=== PATIENT | female | born 1970 | race Caucasian/White ===

== ENCOUNTER 2018-11-18 06:43 | Day surgery (SDC) | payer BC ==
[2018-11-13 07:19] VITALS: BMI 23.3
[2018-11-18] MEDS ORDERED: Midazolam 2 MG/2 ML VIAL ONE (08:20)
[2018-11-18] MEDS ORDERED: Propofol 10 mg/ml Inj (20 ML) ONE (08:21)
[2018-11-18] MEDS: HYDROmorphone 0.5 mg/0.5 ml ISec IVP PRN ×2 (08:56→09:28)
[2018-11-18] MEDS ORDERED: HYDROmorphone 0.5 mg/0.5 ml ISec ONE (08:59)
[2018-11-18 14:14] VITALS: BP 128/73; PULSE 79; RESP 18; TEMP 97.8; O2SAT 100
--- NOTE | 2018-11-18 21:08 | OP ---
PROCEDURE DATE: 11/18/2018 PREOPERATIVE DIAGNOSIS: The patient is a 48-year-old 2, para 2, with postmenopausal bleeding and endometrial thickening. POSTOPERATIVE DIAGNOSIS: The patient is a 48-year-old 2, para 2, with postmenopausal bleeding and endometrial thickening. SURGEON: Forrest Streeter MD SURGERY NURSE: None. TYPE OF ANESTHESIA: General. ANESTHESIOLOGIST: Maurilio Charles MD COMPLICATIONS: None. ESTIMATED BLOOD LOSS: 20 mL. DEFICIT: 60 mL. PROCEDURE PERFORMED: MyoSure dilatation and curettage. DESCRIPTION OF PROCEDURE: After informed consent was obtained, the patient was brought into the operating room, placed on the table where general anesthesia was administered. Once the anesthesia was found to be adequate, the patient was prepped and draped in the normal sterile fashion. Examination of the uterus revealed it to be 8 weeks' size. No pelvic or adnexal masses. Anterior lip of the cervix was grasped with a tenaculum. Gentle dilatation of the cervix was done and then hysteroscope was introduced and found to be a big fibroid on the anterior wall of the uterus. Picture was taken, and the decision was made to use the MyoSure. MyoSure was used to take out the polyp. After that, sharp curettage of the endometrium was done. After that, it was ECC, was sent to Pathology. After that, the tenaculum was taken out. The patient tolerated the procedure well. Lap, sponge, and instrument counts were correct x2. Forrest Streeter MD
== END 2018-11-18 14:05 | disposition home or self-care (01) ==
LOC: C.SDS 06:43
PROVIDERS: ATTEND Obstetrics & Gynecology
DX: D25.0 Submucous leiomyoma of uterus (principal); N95.0 Postmenopausal bleeding
CPT/HCPCS: 58561; 88305; J1170; J2250; J2405; J2704; J3010